=== PATIENT | male | born 1985 | race American Indian/Alaskan Native ===

== ENCOUNTER 2020-09-10 11:18 | Emergency (ER) | payer OTHER, SELFPAY ==
[2020-09-10] MEDS ORDERED: Dexamethasone 4 MG TAB ONE ×3 (13:22→13:37)
[2020-09-10] MEDS ORDERED: Famotidine 20 MG TAB PO SCH (13:30)
== END 2020-09-10 13:40 | disposition home or self-care (01) ==
LOC: CSHERS 11:18
DX: L23.9 Allergic contact dermatitis, unspecified cause (principal)
CPT/HCPCS: 99283; J8540